=== PATIENT | female | born 1970 | race American Indian/Alaskan Native ===

== ENCOUNTER 2018-05-29 00:01 | Observation (INO) | payer OTHER ==
[2018-05-29] MEDS ORDERED: ASPIRIN PO ONE (00:24)
--- NOTE | 2018-05-29 00:26 | Emergency Department Report ---
ED Chest Pain HPI - General Stated Complaint: ELEVATED BLOOD SUGAR Time Seen by Provider: 05/29/18 00:21 Source: patient, EMS Mode of arrival: Stretcher Limitations: No Limitations - History of Present Illness Initial Comments: Patient is a 47-year-old female that presents emergency room with complaints of hyperglycemia and chest pain. Patient states that she called EMS because she was having high blood sugars and in route here she developed chest pain. Patient states at home her blood sugar was over 400. Per EMS her blood sugar was 410, they put a peripheral IV in and gave her fluids and rechecked her blood sugar and it was 110. Patient states the chest pain as a 3 or 4 out of 10. Patient states the chest pain is substernal and left chest. Patient states the chest pain is better with rest and worse with movement. MD Complaint: chest pain -: Sudden, minutes(s) (10 minutes) Onset: during rest Pain Location: substernal, left chest Pain Radiation: none Severity: moderate Severity scale (0 -10): 4 Quality: tightness, heaviness Consistency: constant Improves With: rest Worsens With: movement re: denies: nausea, vomting, diaphoresis, dyspnea, sense of impending doom Other Symptoms: denies: cough, fever, syncope, rash, acid taste in mouth, leg swelling, palpitations, burping Treatments Prior to Arrival: none Aspirin use within the Past 7 Days: (0) No - Related Data Previous Rx's Medication Instructions Recorded Last Taken Type Cyclobenzaprine [Flexeril] 10 mg PO TID PRN #20 tablet 09/28/16 Unknown Rx Allergies Allergy/AdvReac Type Severity Reaction Status Date / Time Latex, Natural Rubber Allergy Hives Verified 05/29/18 00:45 morphine AdvReac Unknown Verified 05/29/18 00:45 Heart Score - HEART Score History: Slightly suspicious EKG: Normal Age: 45-65 Risk factors: 1-2 risk factors Troponin: < normal limit HEART Score: 2 ED Review of Systems ROS: Stated complaint: ELEVATED BLOOD SUGAR Other details as noted in HPI Constitutional: denies: chills, fever Eyes: denies: eye pain, eye discharge, vision change ENT: denies: ear pain, throat pain Respiratory: denies: cough, shortness of breath, wheezing Cardiovascular: chest pain. denies: palpitations Endocrine: no symptoms reported Gastrointestinal: denies: abdominal pain, nausea, diarrhea Genitourinary: denies: urgency, dysuria, discharge Musculoskeletal: denies: back pain, joint swelling, arthralgia Skin: denies: rash, lesions Neurological: headache. denies: weakness, paresthesias Psychiatric: denies: anxiety, depression Hematological/Lymphatic: denies: easy bleeding, easy bruising ED Past Medical Hx - Past Medical History Previous Medical History?: Yes Hx Hypertension: Yes Hx Diabetes: Yes Additional medical history: neurapathy - Surgical History Past Surgical History?: Yes Hx Appendectomy: Yes Additional Surgical History: ooporectomy - Family History Family history: hypertension - Social History Smoking Status: Never Smoker Substance Use Type: None - Medications Home Medications: Home Medications Medication Instructions Recorded Confirmed Last Taken Type Cyclobenzaprine [Flexeril] 10 mg PO TID PRN #20 tablet 09/28/16 Unknown Rx ED Physical Exam - General Limitations: No Limitations General appearance: alert, in no apparent distress - Head Head exam: Present: atraumatic, normocephalic - Eye Eye exam: Present: normal appearance - ENT ENT exam: Present: mucous membranes moist - Neck Neck exam: Present: normal inspection - Respiratory Respiratory exam: Present: normal lung sounds bilaterally. Absent: respiratory distress - Cardiovascular Cardiovascular Exam: Present: regular rate, normal rhythm. Absent: systolic murmur, diastolic murmur, rubs, gallop - GI/Abdominal GI/Abdominal exam: Present: soft, normal bowel sounds - Extremities Exam Extremities exam: Present: normal inspection - Back Exam Back exam: Present: normal inspection - Neurological Exam Neurological exam: Present: alert, oriented X3 - Psychiatric Psychiatric exam: Present: normal affect, normal mood - Skin Skin exam: Present: warm, dry, intact, normal color. Absent: rash ED Course Vital Signs 05/29/18 05/29/18 05/29/18 00:57 01:00 01:16 Pulse Rate 87 84 Respiratory 16 14 16 Rate Blood Pressure O2 Sat by Pulse 98 96 Oximetry 05/29/18 05/29/18 05/29/18 01:30 01:46 01:52 Pulse Rate 84 86 Respiratory 22 12 16 Rate Blood Pressure O2 Sat by Pulse 97 97 Oximetry 05/29/18 05/29/18 05/29/18 02:00 02:16 02:30 Pulse Rate 83 83 87 Respiratory 18 15 19 Rate Blood Pressure 127/72 127/72 128/75 O2 Sat by Pulse 96 99 99 Oximetry 05/29/18 05/29/18 05/29/18 02:46 03:00 03:16 Pulse Rate 85 80 81 Respiratory 14 16 16 Rate Blood Pressure 130/78 133/78 133/78 O2 Sat by Pulse 97 97 97 Oximetry 05/29/18 05/29/18 05/29/18 03:30 03:46 04:00 Pulse Rate 85 84 85 Respiratory 14 18 18 Rate Blood Pressure 140/85 135/87 135/87 O2 Sat by Pulse 98 97 97 Oximetry - Reevaluation(s) Reevaluation #1: Discussed case with hospitalist. Hospitalist was consulted for admission. Dr Bales to assume care. Discussed plan of care and admission with patient. Patient agrees to admission. Patient states she is not allergic to morphine and does not have any sensitivity or allergic reaction to morphine. Patient states her chest pain is better but is still there. At a 2 out of 10. Patient states that her headache is a 3 out of 10. 05/29/18 02:41 NOHEMI score - Nohemi Score Age > 65: (0) No Aspirin use within the Past 7 Days: (0) No 3 or more CAD Risk Factors: (0) No 2 or more Angina events in past 24 hrs: (1) Yes Known CAD with more than 50% Stenosis: (0) No Elevated Cardiac Markers: (0) No ST Deviation Greater than 0.5mm: (0) No NOHEMI Score: 1 ED Medical Decision Making - Lab Data Result diagrams: 05/29/18 01:06 05/29/18 01:06 - EKG Data -: EKG Interpreted by Tx EKG shows normal: sinus rhythm, axis, intervals, QRS complexes, ST-T waves Rate: normal - Radiology Data Radiology results: report reviewed neg Chest x-ray - Medical Decision Making She is a 47-year-old female that was brought in by EMS for hyperglycemia. Patient complained of chest pain. Patient will be admitted to the hospitalist service for further evaluation and treatment. - Differential Diagnosis cp. hyperglycemia. acs. jim Critical care attestation.: If time is entered above; I have spent that time in minutes in the direct care of this critically ill patient, excluding procedure time. ED Disposition Clinical Impression: Hyperglycemia, Chest pain, Headache Disposition: DC-09 OP ADMIT IP TO THIS HOSP Is pt being admited?: Yes Does the pt Need Aspirin: No Condition: Serious Time of Disposition: 02:41
--- NOTE | 2018-05-29 01:36 | XRay Report ---
FINAL REPORT EXAM: XR CHEST 1V AP HISTORY: Chest Pain COMPARISON: None available. FINDINGS: Frontal view(s) of the chest obtained. Heart upper limits normal in size and accentuated by portable AP technique and shallow inspiration. No gross consolidation or effusion. No pneumothorax. IMPRESSION: Shallow inspiration. No gross focal consolidation.
[2018-05-29 01:55] LABS: Basophils # (Auto) 0.1 K/mm3 (0.0-0.1); Basophils % (Auto) 0.6 % (0.0-1.8); Eosinophils # (Auto) 0.2 K/mm3 (0.0-0.4); Eosinophils % (Auto) 1.4 % (0.0-4.3); Hematocrit 36.5 % (30.3-42.9); Lymphocytes # (Auto) 1.8 K/mm3 (1.2-5.4); Lymphocytes % (Auto) 16.7 % (13.4-35.0); Mean Corpuscular HGB Conc 33 % (30-34); Mean Corpuscular Hemoglobin 29 pg (28-32); Mean Corpuscular Volume 88 fl (79-97); Monocytes # (Auto) 0.7 K/mm3 (0.0-0.8); Monocytes % (Auto) 6.9 % (0.0-7.3); Platelet Count 229 K/mm3 (140-440); Red Blood Count 4.13 M/mm3 (3.65-5.03)
[2018-05-29 01:58] LABS: Red Cell Distribution Width 20.7 % (13.2-15.2)
[2018-05-29 02:14] LABS: Alanine Aminotransferase 15 units/L (7-56); Albumin 3.8 g/dL (3.9-5); BUN/Creatinine Ratio 11; Blood Urea Nitrogen 9 mg/dL (7-17); Calcium 9.2 mg/dL (8.4-10.2); Hemolysis Index 0
[2018-05-29] MEDS ORDERED: MORPHINE IV ONE (02:48)
[2018-05-29] MEDS ORDERED: SODIUM CHLORIDE FLUSH SYRINGE 10 ML IV PRN (03:50)
[2018-05-29] MEDS ORDERED: ZOFRAN IV PRN (03:50)
[2018-05-29] MEDS ORDERED: NORCO 5/325 PO PRN (03:50)
[2018-05-29] MEDS ORDERED: TYLENOL PO PRN (03:50)
[2018-05-29] MEDS ORDERED: NACL 0.9% 1000 ML 1,000 ML IV SCH (04:00)
[2018-05-29] MEDS ORDERED: D50W (25GM) Syringe IV PRN (04:00)
--- NOTE | 2018-05-29 04:07 | History and Physical Report ---
History of Present Illness Date of examination: 05/29/18 Date of admission: 05/29/18 Chief complaint: Chest pain History of present illness: Patient is a 47-year-old -[place] female with history of hypertension and diabetes who presented to the ED with complaint of chest pain. Patient stated that while she was at home, she suddenly became very weak and at that time she felt that her blood sugar had bottomed out, so she decided to call 911. When EMS arrived, her blood sugar was found to be high at 412. Subsequently, she started experiencing midsternal chest pain. She described it as sharp in character, rated 7/10, nonradiating and constant in duration. No known aggravating or relieving factors. She has associated headaches, shortness of breath, diaphoresis, and dizziness. No cough, fever, chills, leg swelling, palpitation, orthopnea or PND. No nausea, vomiting, syncope or loss of consciousness Past History Past Medical History: diabetes, hypertension, other (diabetic neuropathy, depression) Past Surgical History: appendectomy, Other (oophorectomy) Social history: no significant social history (she denies tobacco, alcohol or illicit drug use) Family history: other (reviewed and noncontributory) Medications and Allergies Allergies Allergy/AdvReac Type Severity Reaction Status Date / Time Latex, Natural Rubber Allergy Hives Verified 05/29/18 00:45 morphine AdvReac Unknown Verified 05/29/18 00:45 Home Medications Medication Instructions Recorded Confirmed Last Taken Type Cyclobenzaprine [Flexeril] 10 mg PO TID PRN #20 tablet 09/28/16 Unknown Rx Active Meds: Active Medications Acetaminophen (Tylenol) 650 mg PO Q4H PRN PRN Reason: Pain MILD(1-3)/Fever >100.5/GUZMAN Acetaminophen/Hydrocodone Bitart ([place]rich 5/325) 1 each PO Q6H PRN PRN Reason: Pain, Moderate (4-6) Dextrose (D50w (25gm) Syringe) 50 ml IV PRN PRN PRN Reason: Hypoglycemia Docusate Sodium (Colace) 100 mg PO BID ARNAV Famotidine (Pepcid) 20 mg IV BID [facility] Sodium Chloride (Nacl 0.9% 1000 Ml) 1,000 mls @ 75 mls/hr IV DIRECT ARNAV Insulin Glargine (Lantus) 10 units SUB-Q QHS ARNAV Insulin Human Lispro (Humalog) 0 unit SUB-Q ACHS ARNAV; Protocol Ondansetron HCl (Zofran) 4 mg IV Q8H PRN PRN Reason: Nausea And Vomiting Sodium Chloride (Sodium Chloride Flush Syringe 10 Ml) 10 ml IV BID ARNAV Sodium Chloride (Sodium Chloride Flush Syringe 10 Ml) 10 ml IV PRN PRN PRN Reason: LINE FLUSH Review of Systems All systems: negative (except as documented in the HPI, all other systems were reviewed and negative) Exam - Constitutional Vitals: Temp Pulse Resp BP Pulse Ox 80 16 133/78 97 05/29/18 03:00 05/29/18 03:00 05/29/18 03:00 05/29/18 03:00 General appearance: Present: no acute distress, obese - EENT Eyes: Present: PERRL, EOM intact ENT: hearing intact, clear oral mucosa - Neck Neck: Present: supple, normal ROM - Respiratory Respiratory effort: normal Respiratory: bilateral: CTA - Cardiovascular Rhythm: regular Heart Sounds: Present: S1 & S2. Absent: rub, click - Extremities Extremities: No edema Peripheral Pulses: within normal limits - Abdominal General gastrointestinal: Present: soft, tender (epigastrium), non-distended, normal bowel sounds - Integumentary Integumentary: Present: clear, warm, dry - Musculoskeletal Musculoskeletal: gait normal, strength equal bilaterally - Psychiatric Psychiatric: memory intact - Neurologic Neurologic: CNII-XII intact, moves all extremities Results - Labs CBC & Chem 7: 05/29/18 01:06 05/29/18 01:06 Labs: Laboratory Last Values WBC 10.5 K/mm3 (4.5-11.0) 05/29/18 01:06 RBC 4.13 M/mm3 (3.65-5.03) 05/29/18 01:06 Hgb 12.0 gm/dl (10.1-14.3) 05/29/18 01:06 Hct 36.5 % (30.3-42.9) 05/29/18 01:06 MCV 88 fl (79-97) 05/29/18 01:06 MCH 29 pg (28-32) 05/29/18 01:06 MCHC 33 % (30-34) 05/29/18 01:06 RDW 20.7 % (13.2-15.2) H 05/29/18 01:06 Plt Count 229 K/mm3 (140-440) 05/29/18 01:06 Lymph % (Auto) 16.7 % (13.4-35.0) 05/29/18 01:06 [place] % (Auto) 6.9 % (0.0-7.3) 05/29/18 01:06 Eos % (Auto) 1.4 % (0.0-4.3) 05/29/18 01:06 Baso % (Auto) 0.6 % (0.0-1.8) 05/29/18 01:06 Lymph # 1.8 K/mm3 (1.2-5.4) 05/29/18 01:06 [place] # 0.7 K/mm3 (0.0-0.8) 05/29/18 01:06 Eos # 0.2 K/mm3 (0.0-0.4) 05/29/18 01:06 Baso # 0.1 K/mm3 (0.0-0.1) 05/29/18 01:06 Seg Neutrophils % 74.4 % (40.0-70.0) H 05/29/18 01:06 Seg Neutrophils # 7.8 K/mm3 (1.8-7.7) H 05/29/18 01:06 Sodium 141 mmol/L (137-145) 05/29/18 01:06 Potassium 3.7 mmol/L (3.6-5.0) 05/29/18 01:06 Chloride 100.9 mmol/L (98-107) 05/29/18 01:06 Carbon Dioxide 27 mmol/L (22-30) 05/29/18 01:06 Anion Gap 17 mmol/L 05/29/18 01:06 BUN 9 mg/dL (7-17) 05/29/18 01:06 Creatinine 0.8 mg/dL (0.7-1.2) 05/29/18 01:06 Estimated GFR > 60 ml/min 05/29/18 01:06 BUN/Creatinine Ratio 11 % 05/29/18 01:06 Glucose 114 mg/dL (65-100) H 05/29/18 01:06 POC Glucose 136 (70-105) H 05/29/18 02:09 Calcium 9.2 mg/dL (8.4-10.2) 05/29/18 01:06 Total Bilirubin 0.30 mg/dL (0.1-1.2) 05/29/18 01:06 AST 20 units/L (5-40) 05/29/18 01:06 ALT 15 units/L (7-56) 05/29/18 01:06 Alkaline Phosphatase 172 units/L (35-129) H 05/29/18 01:06 Troponin T < 0.010 ng/mL (0.00-0.029) 05/29/18 01:06 Total Protein 7.3 g/dL (6.3-8.2) 05/29/18 01:06 Albumin 3.8 g/dL (3.9-5) L 05/29/18 01:06 Albumin/Globulin Ratio 1.1 % 05/29/18 01:06 Assessment and Plan Assessment and plan: Atypical chest pain, rule out ACS -Chest pain pathway -Further evaluation with NST IDDM2 with hyperglycemia and neuropathy -On SSI and Lantus Hypertension, stable -Resume home antihypertensive when reconciled -PRN IV hydralazine Morbid obesity with BMI of 44.6 -Weight loss recommended Prophylaxis -DVT prophylaxis with SCD and GI prophylaxis with famotidine 35 minutes spent coordinating care
[2018-05-29] MEDS ORDERED: APRESOLINE IV PRN (04:24)
[2018-05-29 05:20] LABS: Bilirubin,Urine NEG (Negative); Blood,Urine NEG (Negative); Color,Urine Yellow (Yellow); Mucus,Urine FEW /HPF; Urobilinogen,Urine < 2.0 mg/dL (<2.0)
[2018-05-29 05:35] LABS: Amphetamine Screen,Urine PRESUMPTIVE NEGATIVE; Cannabinoid Screen,Urine PRESUMPTIVE NEGATIVE; Cocaine Screen,Urine PRESUMPTIVE NEGATIVE; Methadone Screen,Urine PRESUMPTIVE NEGATIVE; Opiate Screen,Urine PRESUMPTIVE NEGATIVE
[2018-05-29 06:11] LABS: Benzodiazepines Screen,Urine PRESUMPTIVE POSITIVE
[2018-05-29 07:40] LABS: Chol/HDL Ratio 4.57 %
[2018-05-29] MEDS ORDERED: LEXISCAN IV ONE ×2 (07:55→08:07)
[2018-05-29] MEDS: HumaLOG SUB-Q SCH ×2 (08:30→12:17)
[2018-05-29] MEDS ORDERED: ZOFRAN ONE (09:38)
[2018-05-29] MEDS ORDERED: TYLENOL ONE (09:39)
[2018-05-29] MEDS ORDERED: PEPCID IV SCH (10:00)
[2018-05-29] MEDS ORDERED: SODIUM CHLORIDE FLUSH SYRINGE 10 ML IV SCH (10:00)
[2018-05-29] MEDS ORDERED: COLACE PO SCH (10:00)
--- NOTE | 2018-05-29 11:16 | Treadmill Report ---
Resting images revealed homogeneous radioisotope uptake throughout myocardium. On post-Lexiscan, again similar distribution is noted. Gated scan revealed good left ventricular systolic function with EF 70%. There is no evidence of any segmental motion abnormality. There is no transient ischemic dilatation. IMPRESSION: 1. This test is negative for ischemia. 2. Preserved left ventricular systolic function. JOB# [id number] KR/NTS
--- NOTE | 2018-05-29 12:12 | Discharge Summary ---
Providers - Providers Date of Admission: 05/29/18 03:51 Date of discharge: 05/29/18 Attending physician: BEVERLY DYKES 05/29/18 04:00 Consult to Dietitian/Nutrition [CONS] Routine Physician Instructions: Reason For Exam: Reason for Consult: Diet education Primary care physician: DARYL HUMPHREYS Hospitalization Reason for admission: chest pain Condition: Serious Pertinent studies: Chest x-ray; shallow inspiration abnormality Lumbar spine x-ray; no acute abnormality X-ray knee; normal study Stress test; normal study, normal LV function Hospital course: Very pleasant 47-year-old -[place] female patient with significant past medical history of hypertension diabetes mellitus diabetic neuropathy, Was admitted through emergency room with atypical left-sided chest pain, Patient was initially evaluated symptomatically managed However in view of multiple risk factors, patient underwent stress test which was negative for reversible ischemia With normal left ventricular function, Patient was symptomatically managed, symptoms significantly improved Today he is comfortable no new complaints, vital signs stable Physical examination prior to discharge is unremarkable Patient advised to continue all her home medications as before Chest pain could be secondary to gastroesophageal reflux disease, advised Protonix Counseling done patient advised diet modification and exercise as tolerated and weight reduction Patient is hemodynamically and clinically stable at discharge Discharge diagnosis; --Atypical chest pain: Noncardiac --GERD; probably the reason for patient's chest pain --IDDM2 ; continue insulin at home as before --Hypertension, stable --Morbid obesity with BMI of 44.6 Disposition: DC-01 TO HOME OR SELFCARE Time spent for discharge: 32 min Core Measure Documentation - Palliative Care Palliative Care/ Comfort Measures: Not Applicable - Core Measures Any of the following diagnoses?: none Exam - Constitutional Vitals: Temp Pulse Resp BP Pulse Ox 97.4 F L 85 18 130/82 97 05/29/18 05:05 05/29/18 09:36 05/29/18 05:05 05/29/18 09:36 05/29/18 05:05 General appearance: Present: no acute distress, well-nourished, obese ( moderately obese) - EENT Eyes: Present: PERRL, EOM intact - Neck Neck: Present: supple, normal ROM - Respiratory Respiratory effort: normal Respiratory: bilateral: diminished, negative: rales, rhonchi, wheezing - Cardiovascular Rhythm: regular Heart Sounds: Present: S1 & S2 - Extremities Extremities: no ischemia, No edema - Abdominal General gastrointestinal: Present: soft, non-tender, non-distended, normal bowel sounds - Integumentary Integumentary: Present: clear, warm - Musculoskeletal Musculoskeletal: strength equal bilaterally - Psychiatric Psychiatric: appropriate mood/affect, cooperative - Neurologic Neurologic: CNII-XII intact, moves all extremities Plan Activity: advance as tolerated, fall precautions Diet: diabetic, other (cardiac diet) Additional Instructions: Follow-up private brand marketing specialist if you have recurrent chest pain for further evaluation and management, or go to emergency room Follow up with: PRIMARY CARE, [Referring] - 3-5 Days Prescriptions: Pantoprazole [Protonix] 40 mg PO QDAY #14 tablet
[2018-05-29 12:40] VITALS: BP 146/93
[2018-05-29] MEDS ORDERED: LANTUS SUB-Q SCH (22:00)
== END 2018-05-29 14:15 | disposition home or self-care (01) ==
LOC: ED 00:01 → INTOOBSV 03:51 → 3A 03:51
PROVIDERS: ADMIT Internal Medicine; ATTEND Internal Medicine
DX: R07.89 Other chest pain (principal); I10 Essential (primary) hypertension; E11.40 Type 2 diabetes mellitus with diabetic neuropathy, unspecified; E11.65 Type 2 diabetes mellitus with hyperglycemia; E66.01 Morbid (severe) obesity due to excess calories; K21.9 Gastro-esophageal reflux disease without esophagitis; F32.9 Major depressive disorder, single episode, unspecified; Z68.41 Body mass index [BMI] 40.0-44.9, adult; Z82.49 Family history of ischemic heart disease and other diseases of the circulatory system
CPT/HCPCS: 36415; 71045; 78452; 80053; 80061; 80307; 81001; 82962; 83036; 83690; 84484; 85025; 93005; 93010; 93017; 96361; 96372; 96374; 96375; 99285; A9502; G0378; J2270; J2405; J2785; J7030; J1815

== ENCOUNTER 2018-07-16 03:30 | Emergency (ER) | payer OTHER ==
[2018-07-16 04:24] VITALS: BP 101/71
[2018-07-16] MEDS ORDERED: TORADOL IM ONE (04:24)
[2018-07-16 05:36] LABS: HCG Qualitative,Urine Negative (Negative)
--- NOTE | 2018-07-16 07:06 | XRay Report ---
FINAL REPORT PROCEDURE: XR SHOULDER 2+V RT TECHNIQUE: Right shoulder radiographs including AP views in internal and external rotation and abduction. CPT 51673 HISTORY: right shoulder pain COMPARISON: No prior studies are available for comparison. FINDINGS: Fracture (s) and/or Dislocation(s): None . Joint space(s): Normal . Soft tissues: Normal . Bone mineralization: Normal . Foreign bodies: None . IMPRESSION: Normal Examination
--- NOTE | 2018-07-16 09:05 | Emergency Department Report ---
ED General Adult HPI - General Chief complaint: Shoulder Injury Stated complaint: SHOULDER AND TOOTH PAIN Time Seen by Provider: 07/16/18 08:32 Source: patient Mode of arrival: Ambulatory Limitations: No Limitations - History of Present Illness Initial comments: This is a 47-year-old -[place] female who presents with chronic right shoulder pain and toothache for 3 days. Past medical history of diabetes type 2 , hypertension, neuropathy, and chronic pain. Patient states she is being seen by pain management and ran out of Percocet pain pills. She has appointment with pain management doctor and July 23. She is requesting something for pain to her over to appointment. Patient states she is also having issues with upper and lower tooth on the right side. She is trying to get out with [facility] to have screws removed. Patient states pain has increased over the past 3 days. She states she is currently on clindamycin for treatment of sexual transmitted disease which is not helping tooth pain. Patient denies difficulty swallowing or chewing, numbness or tingling, swelling, chest pain, or erythema. Onset/Timin -: days(s) Location: upper extremity (right shoulder) Radiation: non-radiation Severity scale (0 -10): 6 Quality: aching Consistency: intermittent Improves with: none Worsens with: eating, movement Associated Symptoms: denies other symptoms Treatments Prior to Arrival: other (prescribed pain medication) - Related Data Previous Rx's Medication Instructions Recorded Last Taken Type Cyclobenzaprine [Flexeril 10 MG 10 mg PO TID PRN #20 tablet 09/28/16 Unknown Rx TAB] Pantoprazole [Protonix] 40 mg PO QDAY #14 tablet 05/29/18 Unknown Rx Ibuprofen [Motrin 800 MG tab] 800 mg PO Q8HR PRN #15 tablet 07/16/18 Unknown Rx tiZANidine [Zanaflex] 4 mg PO TID PRN #15 tablet 07/16/18 Unknown Rx Allergies Allergy/AdvReac Type Severity Reaction Status Date / Time Latex, Natural Rubber Allergy Hives Verified 05/29/18 00:45 morphine AdvReac Unknown Verified 05/29/18 00:45 ED Review of Systems ROS: Stated complaint: SHOULDER AND TOOTH PAIN Other details as noted in HPI Constitutional: denies: chills, fever ENT: dental pain (right upper and lower tooth ache). denies: ear pain, throat pain Respiratory: denies: cough, shortness of breath, wheezing Cardiovascular: denies: chest pain, palpitations Gastrointestinal: denies: abdominal pain, nausea, diarrhea Musculoskeletal: arthralgia (right shoulder). denies: back pain, joint swelling Skin: denies: rash, lesions Neurological: denies: headache, weakness, paresthesias Psychiatric: denies: anxiety, depression ED Past Medical Hx - Past Medical History Hx Hypertension: Yes Hx Congestive Heart Failure: No Hx Diabetes: Yes Hx Asthma: No Hx COPD: No Hx HIV: No Additional medical history: neuropathy, CHRONIC PAIN. Carpal Tunnel bilateral hands - Surgical History Hx Appendectomy: Yes Additional Surgical History: oophorectomy - Social History Smoking Status: Never Smoker Substance Use Type: None - Medications Home Medications: Home Medications Medication Instructions Recorded Confirmed Last Taken Type Cyclobenzaprine [Flexeril 10 MG 10 mg PO TID PRN #20 tablet 09/28/16 Unknown Rx TAB] Pantoprazole [Protonix] 40 mg PO QDAY #14 tablet 05/29/18 Unknown Rx Ibuprofen [Motrin 800 MG tab] 800 mg PO Q8HR PRN #15 tablet 07/16/18 Unknown Rx tiZANidine [Zanaflex] 4 mg PO TID PRN #15 tablet 07/16/18 Unknown Rx ED Physical Exam - General Limitations: No Limitations General appearance: alert, in no apparent distress, obese - ENT ENT exam: Present: mucous membranes moist, other (dental caries and #6 and #30) - Respiratory Respiratory exam: Present: normal lung sounds bilaterally. Absent: respiratory distress - Cardiovascular Cardiovascular Exam: Present: regular rate, normal rhythm. Absent: systolic murmur, diastolic murmur, rubs, gallop - GI/Abdominal GI/Abdominal exam: Present: soft, normal bowel sounds - Expanded Upper Extremity Exam Right Shoulder Exam: Present: full ROM, crepidus. Absent: tenderness, swelling, abrasion, laceration, ecchymosis, dislocation, erythema, tenderness over AC joint Upper Arm exam: Present: normal inspection, full ROM Elbow exam: Present: normal inspection, full ROM Forearm Wrist exam: Present: normal inspection, full ROM Hand Wrist exam: Present: normal inspection, full ROM Neuro motor exam: Present: wrist extension intact, thumb opposition intact, thumb IP flexion intact, thumb adduction intact, fingers 2-5 abduction intact Neurosensory exam: Present: radial nerve intact, ulnar nerve intact, median nerve intact Vascular: Present: normal capillary refill, radial pulse - Neurological Exam Neurological exam: Present: alert, oriented X3 - Psychiatric Psychiatric exam: Present: normal affect, normal mood - Skin Skin exam: Present: warm, dry, intact, normal color. Absent: rash ED Course Vital Signs 07/16/18 07/16/18 04:12 05:12 Temperature 98 F Pulse Rate 88 Respiratory 16 18 Rate Blood Pressure 101/71 O2 Sat by Pulse 100 Oximetry ED Medical Decision Making - Medical Decision Making Patient was examined by myself in fast track. Vitals are normal and patient is in no acute distress. Obtained a x-ray of right shoulder. X-rays read by radiologist and no acute findings. Patient informed of results. Start tizanidine and ibuprofen for chronic pain and toothache. Follow-up with pain management next week for refills of chronic pain medication. Reviewed RX from [facility]. Patient discharged home in stable condition. Follow up with PCP in 2-3 days. Critical care attestation.: If time is entered above; I have spent that time in minutes in the direct care of this critically ill patient, excluding procedure time. ED Disposition Clinical Impression: Chronic right shoulder pain, Neuropathy, Dental caries, Toothache Disposition: TO HOME OR SELFCARE Is pt being admited?: No Does the pt Need Aspirin: No Condition: Stable Instructions: Diabetic Neuropathy (ED), Arthralgia (ED), Toothache (ED) Additional Instructions: Follow up with Dentist in 24-72 hours. Follow-up with pain management for refills. Prescriptions: Ibuprofen [Motrin 800 MG tab] 800 mg PO Q8HR PRN #15 tablet PRN Reason: Pain, Moderate (4-6) tiZANidine [Zanaflex] 4 mg PO TID PRN #15 tablet PRN Reason: Muscle Spasm Referrals: [facility] [Outside] - 3-5 Days [facility] [Provider Group] - 3-5 Days [facility] [Outside] - 3-5 Days [facility] [Outside] - 3-5 Days Time of Disposition: 09:13 Print Language: CHINESE
== END 2018-07-16 09:22 | disposition home or self-care (01) ==
LOC: ED 03:30
DX: M25.511 Pain in right shoulder (principal); E11.40 Type 2 diabetes mellitus with diabetic neuropathy, unspecified; K02.9 Dental caries, unspecified; I10 Essential (primary) hypertension; Z91.040 Latex allergy status; Z88.5 Allergy status to narcotic agent; Z90.49 Acquired absence of other specified parts of digestive tract; Z90.722 Acquired absence of ovaries, bilateral
CPT/HCPCS: 73030; 81025; 96372; 99284; J1885

== ENCOUNTER 2019-10-31 21:41 | Emergency (ER) | payer OTHER ==
[2019-10-31] MEDS ORDERED: SODIUM CHLORIDE 0.9% 1000 ML 1,000 ML IV ONE (22:17)
[2019-10-31] MEDS ORDERED: DICYCLOMINE 20 MG/2 ML INJ IM ONE (22:17)
[2019-10-31] MEDS ORDERED: KETOROLAC 30 MG/1 ML INJ IV ONE (22:17)
[2019-10-31] MEDS ORDERED: FAMOTIDINE 20 MG/2 ML INJ IV ONE (22:17)
[2019-10-31] MEDS ORDERED: ONDANSETRON 4 MG/2 ML INJ IV ONE (22:17)
--- NOTE | 2019-10-31 22:36 | Emergency Department Report ---
ED N/V/D HPI - General Chief complaint: Abdominal Pain Stated complaint: ABD PAIN Time Seen by Provider: 10/31/19 22:12 Source: patient, EMS Mode of arrival: Stretcher Limitations: No Limitations - History of Present Illness Initial comments: Patient is a 49-year-old [place] female who is presenting with nausea vomiting and upper abdominal discomfort. Patient states possibly 2-3 hours ago she ate [place] food and her symptoms developed afterwards. Patient states the pain is 8 out of 10 in severity and is located in the right upper quadrant and ep igastrium. She denies fever or diarrhea, cold or congestion. Patient has had several episodes of diaphoresis with nausea vomiting. Patient states she had an ultrasound approximately year and half ago that showed she has gallbladder sludge but no follow-up appointments with general surgery were made. - Related Data Previous Rx's Medication Instructions Recorded Last Taken Type Cyclobenzaprine [Flexeril 10 MG 10 mg PO TID PRN #20 tablet 09/28/16 Unknown Rx TAB] Pantoprazole [Protonix] 40 mg PO QDAY #14 tablet 05/29/18 Unknown Rx Ibuprofen [Motrin 800 MG tab] 800 mg PO Q8HR PRN #15 tablet 07/16/18 Unknown Rx tiZANidine [Zanaflex 4mg TAB] 4 mg PO TID PRN #15 tablet 07/16/18 Unknown Rx Dicyclomine [Bentyl] 20 mg PO QID #10 tablet 11/01/19 Unknown Rx Famotidine [Pepcid] 40 mg PO QHS #10 tablet 11/01/19 Unknown Rx Ondansetron [Zofran Odt] 4 mg PO Q8HR #10 tab.rapdis 11/01/19 Unknown Rx Allergies Allergy/AdvReac Type Severity Reaction Status Date / Time Latex, Natural Rubber Allergy Hives Verified 05/29/18 00:45 morphine AdvReac Unknown Verified 05/29/18 00:45 ED Review of Systems ROS: Stated complaint: ABD PAIN Other details as noted in HPI Comment: All other systems reviewed and negative ED Past Medical Hx - Past Medical History Previous Medical History?: Yes Hx Hypertension: Yes Hx Congestive Heart Failure: No Hx Diabetes: Yes Hx Asthma: No Hx COPD: No Hx HIV: No Additional medical history: neuropathy, CHRONIC PAIN. Carpal Tunnel bilateral hands - Surgical History Past Surgical History?: Yes Hx Appendectomy: Yes Additional Surgical History: oophorectomy - Social History Smoking Status: Never Smoker Substance Use Type: None - Medications Home Medications: Home Medications Medication Instructions Recorded Confirmed Last Taken Type Cyclobenzaprine [Flexeril 10 MG 10 mg PO TID PRN #20 tablet 09/28/16 Unknown Rx TAB] Pantoprazole [Protonix] 40 mg PO QDAY #14 tablet 05/29/18 Unknown Rx Ibuprofen [Motrin 800 MG tab] 800 mg PO Q8HR PRN #15 tablet 07/16/18 Unknown Rx tiZANidine [Zanaflex 4mg TAB] 4 mg PO TID PRN #15 tablet 07/16/18 Unknown Rx Dicyclomine [Bentyl] 20 mg PO QID #10 tablet 11/01/19 Unknown Rx Famotidine [Pepcid] 40 mg PO QHS #10 tablet 11/01/19 Unknown Rx Ondansetron [Zofran Odt] 4 mg PO Q8HR #10 tab.rapdis 11/01/19 Unknown Rx ED Physical Exam - General Limitations: No Limitations General appearance: alert, anxious, in distress - Head Head exam: Present: atraumatic, normocephalic - Eye Eye exam: Present: normal appearance, PERRL, EOMI - ENT ENT exam: Present: mucous membranes moist - Neck Neck exam: Present: normal inspection - Respiratory Respiratory exam: Present: normal lung sounds bilaterally. Absent: respiratory distress, wheezes, rales, rhonchi - Cardiovascular Cardiovascular Exam: Present: regular rate, normal rhythm, normal heart sounds. Absent: systolic murmur, diastolic murmur, rubs, gallop - GI/Abdominal GI/Abdominal exam: Present: soft, tenderness (RUQ?Epigastric tenderness), normal bowel sounds. Absent: distended, guarding, rebound, rigid - Extremities Exam Extremities exam: Present: normal inspection - Back Exam Back exam: Present: normal inspection - Neurological Exam Neurological exam: Present: alert, oriented X3 - Psychiatric Psychiatric exam: Present: normal affect, normal mood - Skin Skin exam: Present: warm, dry, intact, normal color. Absent: rash ED Course Vital Signs 10/31/19 10/31/19 10/31/19 22:16 22:18 22:30 Pulse Rate 76 76 Respiratory 16 19 18 Rate Blood Pressure 189/121 177/128 O2 Sat by Pulse 99 100 Oximetry 10/31/19 22:48 Pulse Rate Respiratory 16 Rate Blood Pressure O2 Sat by Pulse Oximetry - Reevaluation(s) Reevaluation #1: 11/01/19 01:04 The patient was given several doses of antiemetics and is feeling some improvement. Patient be discharged home ED Medical Decision Making - Lab Data Result diagrams: 10/31/19 23:18 10/31/19 23:18 - Radiology Data ULTRASOUND ABDOMEN, LIMITED (RIGHT UPPER QUADRANT) INDICATION: RUQ pain/NV. COMPARISON: None available. FINDINGS: Difficult imaging secondary to patient's body habitus Pancreas: Poorly visualized Liver: Normal. Gallbladder: Normal. Bile ducts: Normal. Common Bile Duct measures 1 mm. Free fluid: None. Additional Findings: None. IMPRESSION: 1. No sonographic abnormality of the right upper quadrant. Please see comments Signer Name: Javier Yates MD Signed: 10/31/2019 10:50 PM Workstation Name: [id number] - Medical Decision Making Patient stable for discharge. Cholecystitis is ruled out at this time as well as acute pancreatitis. Patient be given GI follow-up. Patient given medication for symptomatic relief as an outpatient. Critical care attestation.: If time is entered above; I have spent that time in minutes in the direct care of this critically ill patient, excluding procedure time. ED Disposition Clinical Impression: Acute gastritis Qualifiers: Gastritis type: superficial Gastritis bleeding: without bleeding Qualified Co de(s): K29.00 - Acute gastritis without bleeding Disposition: DC-01 TO HOME OR SELFCARE Is pt being admited?: No Does the pt Need Aspirin: No Condition: Stable Instructions: Abdominal Pain (ED), Gastritis (ED) Referrals: [facility] [Provider Group] - 3-5 Days Time of Disposition: 01:10
[2019-10-31 22:42] VITALS: BP 177/128
[2019-10-31 23:41] LABS: Basophils % (Auto) 0.4 % (0.0-1.8); Eosinophils # (Auto) 0.1 K/mm3 (0.0-0.4); Eosinophils % (Auto) 1.1 % (0.0-4.3); Hematocrit 42.7 % (30.3-42.9); Lymphocytes # (Auto) 1.5 K/mm3 (1.2-5.4); Lymphocytes % (Auto) 12.9 % (13.4-35.0); Mean Corpuscular HGB Conc 33 % (30-34); Mean Corpuscular Volume 86 fl (79-97); Monocytes # (Auto) 0.6 K/mm3 (0.0-0.8); Monocytes % (Auto) 5.3 % (0.0-7.3); Platelet Count 197 K/mm3 (140-440); Red Blood Count 4.98 M/mm3 (3.65-5.03); Red Cell Distribution Width 16.6 % (13.2-15.2)
--- NOTE | 2019-10-31 23:54 | Ultrasound Report ---
ULTRASOUND ABDOMEN, LIMITED (RIGHT UPPER QUADRANT) INDICATION: RUQ pain/NV. COMPARISON: None available. FINDINGS: Difficult imaging secondary to patient's body habitus Pancreas: Poorly visualized Liver: Normal. Gallbladder: Normal. Bile ducts: Normal. Common Bile Duct measures 1 mm. Free fluid: None. Additional Findings: None. IMPRESSION: 1. No sonographic abnormality of the right upper quadrant. Please see comments Signer Name: Javier Yates MD Signed: 10/31/2019 11:50 PM Workstation Name: [id number]
[2019-11-01 00:04] LABS: Alanine Aminotransferase 31 units/L (7-56); BUN/Creatinine Ratio 10; Blood Urea Nitrogen 7 mg/dL (7-17); Calcium 9.3 mg/dL (8.4-10.2); Hemolysis Index 24
[2019-11-01 00:20] LABS: Albumin 4.5 g/dL (3.9-5)
[2019-11-01] MEDS ORDERED: ONDANSETRON 4 MG/2 ML INJ IV ONE (00:23)
[2019-11-01] MEDS ORDERED: ZIPRASIDONE MESYLATE 20 MG VIAL IM ONE (00:29)
[2019-11-01 01:09] LABS: Bilirubin,Urine NEG (Negative); Blood,Urine NEG (Negative); Color,Urine Yellow (Yellow); Hyaline Casts,Urine 1 /LPF; Mucus,Urine FEW /HPF; Urobilinogen,Urine < 2.0 mg/dL (<2.0)
== END 2019-11-01 01:38 | disposition home or self-care (01) ==
LOC: ED 21:41
DX: K29.00 Acute gastritis without bleeding (principal); I10 Essential (primary) hypertension; E11.9 Type 2 diabetes mellitus without complications; Z90.49 Acquired absence of other specified parts of digestive tract; Z98.890 Other specified postprocedural states; Z79.899 Other long term (current) drug therapy; Z91.040 Latex allergy status; Z88.8 Allergy status to other drugs, medicaments and biological substances
CPT/HCPCS: 36415; 76705; 80053; 81001; 83690; 84703; 85025; 96361; 96372; 96374; 96375; 96376; 99284; J0500; J1885; J2405; J3486; J7030

== ENCOUNTER 2019-11-01 02:33 | Emergency (ER) | payer OTHER ==
[2019-11-01 02:48] VITALS: BP 194/97
== END 2019-11-01 06:23 | disposition left against medical advice (07) ==
LOC: ED 02:33
DX: M79.2 Neuralgia and neuritis, unspecified (principal); Z53.21 Procedure and treatment not carried out due to patient leaving prior to being seen by health care provider